=== PATIENT | female | born 1970 | race Caucasian/White ===

== ENCOUNTER → 2016-12-24 | Outpatient (CLI) | payer BC ==
[~2016-12-24] MED LIST: BRINTELLIX10 PO; CLARITIN 1010 MG/TAB PO; KLONOPIN 0.5MG0.5 MG PO; LAMICTAL 100MG100 MG PO; MUSCLE RELAXER; PERCOCET 325 MG1 TA2 PO; SKELAXIN 800MG800 MG PO; TEGRETOL100 MG PO; ULTRAM 50MG TAB50 MG PO; ULTRAM100 MG PO
== END ==
LOC: BHSO 14:15
DX: F41.1 Generalized anxiety disorder (principal)